=== PATIENT | female | born 1955 | race African-American/Black ===

== ENCOUNTER 2023-09-16 11:52 | Observation (INO) ==
[2023-09-16 18:16] LABS: BASOPHILS # (AUTO) 0.1 X10^3/uL (0.0-0.1); BASOPHILS % (AUTO) 0.5 % (0.2-1.0); EOSINOPHILS # (AUTO) 0.2 x10^3/uL (0.0-0.2); EOSINOPHILS % (AUTO) 2.2 % (0.9-2.9); HEMATOCRIT 36.4 % (36.0-47.0); HEMOGLOBIN 11.6 g/dL (12.0-16.0); LYMPHOCYTES # (AUTO) 2.7 X10^3/uL (1.3-2.9); LYMPHOCYTES % (AUTO) 24.9 % (21.0-51.0); MEAN CORPUSCULAR HEMOGLOBIN 25.9 pg (27.0-34.0); MEAN CORPUSCULAR HGB CONC 31.9 g/dL (33.0-35.0); MEAN CORPUSCULAR VOLUME 81.3 fL (80.0-100.0); MEAN PLATELET VOLUME 8.6 fL (7.4-11.0); MONOCYTES % (AUTO) 9.1 % (0.0-13.0); NEUTROPHILS # (AUTO) 6.8 x10^3/uL (2.2-4.8); NEUTROPHILS % (AUTO) 63.3 % (42.0-75.0); PLATELET COUNT 233 X10^3/uL (150.0-450.0); RED BLOOD COUNT 4.48 X10^6/uL (3.5-5.4); RED CELL DISTRIBUTION WIDTH 14.2 % (11.6-16.5); WHITE BLOOD COUNT 10.8 X10^3/uL (3.6-10.0)
[2023-09-16] MEDS ORDERED: PROVENTIL NEB TX 0.083% 2.5MG/ 3ML NEB PRN (18:27)
[2023-09-16 18:32] LABS: ALBUMIN 2.8 g/dL (3.4-5.0); CARBON DIOXIDE 25.6 mmol/L (21-32); CREATININE 1.44 mg/dL (0.55-1.02); POTASSIUM 4.9 mmol/L (3.5-5.1); TOTAL PROTEIN 7.6 g/dL (6.4-8.2)
[2023-09-16] MEDS ORDERED: NovoLIN R (or HumuLIN R) SUBCUT PRN (18:59)
[2023-09-16] MEDS: NS 1,000 ML IV 1,000 ML IV SCH (19:19)
[2023-09-16] MEDS: ROCEPHIN VIAL 1 GRAM 1 G in NS 100 ML IV 100 ML IV SCH (19:19)
[2023-09-16] MEDS: ELIQUIS PO SCH (20:56)
[2023-09-16] MEDS: SNACK - Diabetic Appropriate PO SCH (20:56)
[2023-09-16] MEDS: LIPITOR TAB 10 MG PO SCH (21:05)
[2023-09-16] MEDS: NEURONTIN CAP 100 MG PO SCH (21:06)
[2023-09-16] MEDS: COREG TAB 3.125 MG PO SCH (21:06)
--- NOTE | 2023-09-17 05:50 | RAD ---
PROCEDURE: Chest X-ray 1 View. HISTORY: Dyspnea. TECHNIQUE: AP view. COMPARISON: None . TECHNICAL QUALITY: Satisfactory. FINDINGS: Normal size heart. Mediastinum and hilar regions show no masses or lymphadenopathy. Normal central vascularity. No pulmonary consolidation, masses, pleural fluid, or pneumothorax. No acute bony abnormality. IMPRESSION: No evidence of active cardiopulmonary disease. THIS IS AN ELECTRONICALLY VERIFIED FINAL REPORT 09/17/2023 5:46 AM - Electronically signed by Humphrey Foreman MD
[2023-09-17] MEDS: SYNTHROID 75 mcg TAB PO SCH (06:03)
[2023-09-17 06:17] LABS: BASOPHILS % (AUTO) 0.4 % (0.2-1.0); EOSINOPHILS # (AUTO) 0.2 x10^3/uL (0.0-0.2); EOSINOPHILS % (AUTO) 2.6 % (0.9-2.9); HEMATOCRIT 33.2 % (36.0-47.0); HEMOGLOBIN 10.6 g/dL (12.0-16.0); LYMPHOCYTES # (AUTO) 2.5 X10^3/uL (1.3-2.9); MEAN CORPUSCULAR HEMOGLOBIN 26.2 pg (27.0-34.0); MEAN CORPUSCULAR HGB CONC 31.9 g/dL (33.0-35.0); MEAN PLATELET VOLUME 9.2 fL (7.4-11.0); MONOCYTES # (AUTO) 0.8 x10^3/uL (0.3-0.8); MONOCYTES % (AUTO) 9.4 % (0.0-13.0); NEUTROPHILS # (AUTO) 4.6 x10^3/uL (2.2-4.8); NEUTROPHILS % (AUTO) 56.6 % (42.0-75.0); PLATELET COUNT 169 X10^3/uL (150.0-450.0); RED BLOOD COUNT 4.05 X10^6/uL (3.5-5.4); RED CELL DISTRIBUTION WIDTH 14.5 % (11.6-16.5); WHITE BLOOD COUNT 8.1 X10^3/uL (3.6-10.0)
[2023-09-17 06:32] LABS: BILIRUBIN,URINE NEGATIVE (NEGATIVE); BLOOD/HEMOGLOBIN,URINE 2+ (NEGATIVE); GLUCOSE, URINE NEGATIVE (NEGATIVE); KETONES,URINE NEGATIVE (NEGATIVE); LEUKOCYTE ESTERASE ,URINE 3+ (NEGATIVE); NITRITES,URINE NEGATIVE (NEGATIVE); PROTEIN,URINE 1+ (NEGATIVE); UROBILINOGEN,URINE NORMAL (NORMAL)
[2023-09-17 06:35] LABS: ALANINE AMINOTRANSFERASE 9 Units/L (12-78); ALBUMIN 2.3 g/dL (3.4-5.0); ALKALINE PHOSPHATASE 87 Units/L (46-116); ASPARTATE AMINO TRANSFERASE 7 Units/L (15-37); BLOOD UREA NITROGEN 31 mg/dL (7-18); CALCIUM 8.9 mg/dL (8.5-10.1); CHLORIDE 109 mmol/L (98-107); COR CA(FOR HYPOALB) 10.3 mg/dL (8.5-10.1); COR NA(FOR HYPERGLY) 143 mmol/L (136-145); CREATININE 1.14 mg/dL (0.55-1.02); GLUCOSE 179 mg/dL (65-99); POTASSIUM 5.1 mmol/L (3.5-5.1); SODIUM 141 mmol/L (136-145); TOTAL PROTEIN 6.7 g/dL (6.4-8.2); eGFR NON BLACK RACES 50 (>60)
[2023-09-17 06:40] LABS: APPEARANCE,URINE HAZY (CLEAR); COLOR,URINE PALE YELLOW (YELLOW)
[2023-09-17 06:41] LABS: BACTERIA,URINE TRACE /HPF (NEGATIVE); SQUAMOUS EPITHELIAL CELL,UR MODERATE /HPF (NEGATIVE)
[2023-09-17] MEDS: PROTONIX TAB 40 MG PO SCH (09:05)
[2023-09-17] MEDS: GLUCOPHAGE XR 24-HR PO SCH (10:10)
[2023-09-17] MEDS ORDERED: MIRALAX POWDER (1 DOSE 17 G) PO PRN (10:28)
--- NOTE | 2023-09-17 10:32 | DR.H&P ---
H&P History & Physical for Day of: H&P Date: 09/17/23 Chief Complaint Chief Complaint: weakness, urinary symptoms History of Present Illness History of Present Illness: Ms Sotelo is a 68y/o female with a PMH of DM, HTN, OA, chronic pain presented with worsening weakness, poor oral intake and urinary symptoms. She was seen in [place] ER on 09/16/23 and found to have UTI and hyperkalemia. She was given fluids and discharged home on PO antibiotics. Patient states she continued to feel worse and was not able to get up or move around. She has not been eating much. She was directly admitted to [facility] for further management. Labs/imaging reviewed -WBC 8.4 Hgb 10.6 K:5.1 BUN/Cr:31/1.14 -UA: suggestive of infection, urine Cx pending -CXR: no acute process Plan: Admit to med surg, start fluids. Start Rocephin, f/u final urine culture. Resume home medications. Monitor K levels. Change to ADA diet. PT as tolerated. Encouraged ambulation. Monitor AM labs/imaging. Past Medical History Past Medical History: Arthritis, Asthma, Diabetes and Hypertension Family History Family Medical History: Hypertension Social History Alcohol Use: None Medications Home Medications: Home Medications Medication Instructions Recorded Confirmed Type fluticasone fur. 100 mcg-umeclid 1 ea inhalation QDAY 07/31/23 07/31/23 History 62.5 mcg-vilant 25 mcg inhalat.powder (Trelegy Ellipta) hydrocodone 7.5 mg-acetaminophen 1 tab PO TID PRN 07/31/23 07/31/23 History 325 mg tablet Allergies Allergies Allergy/AdvReac Type Severity Reaction Status Date / Time codeine Allergy Unknown Verified 09/16/23 21:32 sulfacetamide Allergy Unknown Verified 09/15/21 11:32 Sulfa (Sulfonamide Allergy Verified 02/17/20 22:41 Antibiotics) [SULFA] Labs 09/17/23 05:30 09/17/23 05:30 Labs: Laboratory WBC 8.1 X10^3/uL (3.6-10.0) 09/17/23 05:30 RBC 4.05 X10^6/uL (3.5-5.4) 09/17/23 05:30 Hgb 10.6 g/dL (12.0-16.0) L 09/17/23 05:30 Hct 33.2 % (36.0-47.0) L 09/17/23 05:30 MCV 82.0 fL (80.0-100.0) 09/17/23 05:30 MCH 26.2 pg (27.0-34.0) L 09/17/23 05:30 MCHC 31.9 g/dL (33.0-35.0) L 09/17/23 05:30 RDW 14.5 % (11.6-16.5) 09/17/23 05:30 Plt Count 169 X10^3/uL (150.0-450.0) 09/17/23 05:30 MPV 9.2 fL (7.4-11.0) 09/17/23 05:30 Neut % (Auto) 56.6 % (42.0-75.0) 09/17/23 05:30 Lymph % (Auto) 31.0 % (21.0-51.0) 09/17/23 05:30 [place] % (Auto) 9.4 % (0.0-13.0) 09/17/23 05:30 Eos % (Auto) 2.6 % (0.9-2.9) 09/17/23 05:30 Baso % (Auto) 0.4 % (0.2-1.0) 09/17/23 05:30 Neut # (Auto) 4.6 x10^3/uL (2.2-4.8) 09/17/23 05:30 Lymph # (Auto) 2.5 X10^3/uL (1.3-2.9) 09/17/23 05:30 [place] # (Auto) 0.8 x10^3/uL (0.3-0.8) 09/17/23 05:30 Eos # (Auto) 0.2 x10^3/uL (0.0-0.2) 09/17/23 05:30 Baso # (Auto) 0.0 X10^3/uL (0.0-0.1) 09/17/23 05:30 Absolute Nucleated RBC 0.1 /100WBC 09/17/23 05:30 Sodium 141 mmol/L (136-145) 09/17/23 05:30 Corrected Sodium 143 mmol/L (136-145) 09/17/23 05:30 Potassium 5.1 mmol/L (3.5-5.1) 09/17/23 05:30 Chloride 109 mmol/L (98-107) H 09/17/23 05:30 Carbon Dioxide 25.0 mmol/L (21-32) 09/17/23 05:30 BUN 31 mg/dL (7-18) H 09/17/23 05:30 Creatinine 1.14 mg/dL (0.55-1.02) H 09/17/23 05:30 Est GFR (MDRD) Af Amer > 60 (>60) 09/17/23 05:30 Est GFR (MDRD) Non-Af 50 (>60) L 09/17/23 05:30 Glucose 179 mg/dL (65-99) H 09/17/23 05:30 POC Glucose (mg/dL) 167 mg/dL (65-99) H 09/17/23 05:46 Calcium 8.9 mg/dL (8.5-10.1) 09/17/23 05:30 Corrected Calcium 10.3 mg/dL (8.5-10.1) H 09/17/23 05:30 Total Bilirubin 0.10 mg/dL (0.2-1.0) L 09/17/23 05:30 AST 7 Units/L (15-37) L 09/17/23 05:30 ALT 9 Units/L (12-78) L 09/17/23 05:30 Alkaline Phosphatase 87 Units/L (46-116) 09/17/23 05:30 Total Protein 6.7 g/dL (6.4-8.2) 09/17/23 05:30 Albumin 2.3 g/dL (3.4-5.0) L 09/17/23 05:30 Globulin 4.4 g/dL (2.5-4.5) 09/17/23 05:30 Albumin/Globulin Ratio 0.5 Ratio (1.1-2.1) L 09/17/23 05:30 Specimen Type Clean catch urine 09/17/23 06:00 Urine Color Pale yellow (YELLOW) 09/17/23 06:00 Urine Appearance Hazy (CLEAR) 09/17/23 06:00 Urine pH 6.0 (5.0 - 8.0) 09/17/23 06:00 Ur Specific [place] 1.015 (1.000-1.030) 09/17/23 06:00 Urine Protein 1+ (NEGATIVE) 09/17/23 06:00 Urine Glucose (UA) Negative (NEGATIVE) 09/17/23 06:00 Urine Ketones Negative (NEGATIVE) 09/17/23 06:00 Urine Blood 2+ (NEGATIVE) 09/17/23 06:00 Urine Nitrite Negative (NEGATIVE) 09/17/23 06:00 Urine Bilirubin Negative (NEGATIVE) 09/17/23 06:00 Urine Urobilinogen Normal (NORMAL) 09/17/23 06:00 Ur Leukocyte Esterase 3+ (NEGATIVE) 09/17/23 06:00 Urine RBC 5-10 /HPF (0-3) A 09/17/23 06:00 Urine WBC Tntc /HPF (0-5) A 09/17/23 06:00 Ur Squamous Epith Cells Moderate /HPF (NEGATIVE) 09/17/23 06:00 Urine Bacteria Trace /HPF (NEGATIVE) 09/17/23 06:00 Ur Culture Indicated? Yes/culture set up 09/17/23 06:00 Review of Systems Constitutional: Weakness Eyes: No Symptoms Reported ENT: No Symptoms Reported Respiratory: No Symptoms Reported Cardiovascular: No Symptoms Reported Gastrointestinal: Nausea Genitourinary: Dysuria and Frequency Musculoskeletal: No Symptoms Reported Skin: No Symptoms Reported Neurological: No Symptoms Reported Physical Exam Vital Signs: Vital Signs Temperature 97.6 F Temperature 97.8 F Pulse Rate [Brachial] 79 Pulse Rate [Brachial] 80 Respiratory Rate 19 Respiratory Rate 20 Blood Pressure [Left Arm] 131/60 Blood Pressure [Left Arm] 146/67 O2 Sat by Pulse Oximetry 98 O2 Sat by Pulse Oximetry 94 Oriented: Normal Respiratory: Diminished Throughout Cardiovascular: Normal Auscultation: Bowel Sounds: Normal Palpation: Normal Tenderness: Normal Skin: Decreased Turgur Musculoskeletal: Normal Psychiatric: Normal Mood Description: Calm Affect: Normal Speech Pattern: Clear and Appropriate Assessment/Plan (1) General weakness: Status: Acute (2) Urinary tract infection: Qualifiers: Urinary tract infection type: acute cystitis Hematuria presence: without hematuria Qualified Code(s): N30.00 - Acute cystitis without hematuria Status: Acute (3) Dehydration: Status: Acute (4) Chronic venous stasis: Status: Acute (5) Type 2 diabetes mellitus: Qualifiers: Diabetes mellitus chcf insulin use: without chcf use Diabetes mellitus complication status: with neurologic complications Diabetes mellitus complication detail: with polyneuropathy Qualified Code(s): E11.42 - Type 2 diabetes mellitus with diabetic polyneuropathy Status: None (6) Hypothyroidism: Qualifiers: Hypothyroidism type: acquired Qualified Code(s): E03.9 - Hypothyroidism , unspecified Status: None (7) Hypertension: Qualifiers: Hypertension type: primary hypertension Qualified Code(s): I10 - Essential (primary) hypertension Status: None
[2023-09-17] MEDS: NORCO 5/325 MG TAB PO PRN (19:24)
[2023-09-18 06:06] LABS: BASOPHILS # (AUTO) 0.1 X10^3/uL (0.0-0.1); BASOPHILS % (AUTO) 0.9 % (0.2-1.0); EOSINOPHILS # (AUTO) 0.3 x10^3/uL (0.0-0.2); EOSINOPHILS % (AUTO) 2.9 % (0.9-2.9); HEMATOCRIT 34.8 % (36.0-47.0); HEMOGLOBIN 10.9 g/dL (12.0-16.0); LYMPHOCYTES # (AUTO) 3.2 X10^3/uL (1.3-2.9); LYMPHOCYTES % (AUTO) 35.6 % (21.0-51.0); MEAN CORPUSCULAR HEMOGLOBIN 25.8 pg (27.0-34.0); MEAN CORPUSCULAR HGB CONC 31.4 g/dL (33.0-35.0); MEAN CORPUSCULAR VOLUME 81.9 fL (80.0-100.0); MEAN PLATELET VOLUME 8.8 fL (7.4-11.0); MONOCYTES # (AUTO) 0.6 x10^3/uL (0.3-0.8); MONOCYTES % (AUTO) 6.9 % (0.0-13.0); NEUTROPHILS # (AUTO) 4.8 x10^3/uL (2.2-4.8); NEUTROPHILS % (AUTO) 53.7 % (42.0-75.0); PLATELET COUNT 209 X10^3/uL (150.0-450.0); RED BLOOD COUNT 4.25 X10^6/uL (3.5-5.4); RED CELL DISTRIBUTION WIDTH 14.2 % (11.6-16.5); WHITE BLOOD COUNT 8.9 X10^3/uL (3.6-10.0)
[2023-09-18 06:30] LABS: ALANINE AMINOTRANSFERASE 9 Units/L (12-78); ALBUMIN 2.4 g/dL (3.4-5.0); ALKALINE PHOSPHATASE 84 Units/L (46-116); ASPARTATE AMINO TRANSFERASE 6 Units/L (15-37); BLOOD UREA NITROGEN 25 mg/dL (7-18); CALCIUM 8.8 mg/dL (8.5-10.1); CARBON DIOXIDE 24.7 mmol/L (21-32); CHLORIDE 108 mmol/L (98-107); COR CA(FOR HYPOALB) 10.1 mg/dL (8.5-10.1); COR NA(FOR HYPERGLY) 141 mmol/L (136-145); CREATININE 1.14 mg/dL (0.55-1.02); GLUCOSE 117 mg/dL (65-99); POTASSIUM 4.8 mmol/L (3.5-5.1); SODIUM 141 mmol/L (136-145); TOTAL PROTEIN 6.8 g/dL (6.4-8.2); eGFR NON BLACK RACES 50 (>60)
[2023-09-18 07:57] VITALS: RESP 18
[2023-09-18 12:59] VITALS: BP 133/64; PULSE 69; TEMP 97.3; O2SAT 99
--- NOTE | 2023-09-18 16:40 | RAD ---
EXAM: X-ray lumbar spine three views HISTORY: WORSENING LOWER BACK PAIN - COMPARISON: None. FINDINGS: No scoliosis is seen. There is grade 1 anterolisthesis of L4 on L5. Mild disc space narrowing is se en at this level, also. Hypertrophic arthritic facet changes are seen at L4-5 and L5-S1. No compression fracture is seen. There is a large calcification in the left side of the pelvis that is probably a 7.3 cm fibroid. IMPRESSION: Grade 1 spondylolisthesis at L4-5 could be from arthritic changes or pars defect. Arthritic facet ch anges are seen in the lower lumbar spine. Likely large calcified uterine fibroid. THIS IS AN ELECTRONICALLY VERIFIED FINAL REPORT 09/18/2023 4:35 PM - Electronically signed by Giuliano Philippe MD
== END 2023-09-18 15:05 | disposition home or self-care (01) ==
LOC: MED/SURG
PROVIDERS: ADMIT Internal Medicine; ATTEND Internal Medicine
DX: M54.59 Other low back pain; E03.8 Other specified hypothyroidism; E11.42 Type 2 diabetes mellitus with diabetic polyneuropathy; N30.00 Acute cystitis without hematuria; M43.16 Spondylolisthesis, lumbar region; E86.0 Dehydration; I87.8 Other specified disorders of veins; E11.65 Type 2 diabetes mellitus with hyperglycemia; I10 Essential (primary) hypertension; R53.1 Weakness